=== PATIENT | female | born 1950 | race Asian ===

== ENCOUNTER 2020-10-10 10:23 | Inpatient (IN) | payer MEDICARE, OTHER ==
[~2020-10-10] VITALS: Ht 160 cm; Wt 57.6 kg
[2020-10-10] MEDS ORDERED: LOSA100T3 PO (11:15)
[2020-10-10] MEDS ORDERED: MELA3TAB41 PO (11:15)
[2020-10-10] MEDS ORDERED: TEMA15CA PO (11:15)
[2020-10-10] MEDS ORDERED: LORA-259 PO (11:15)
[2020-10-10] MEDS ORDERED: QUET25TA PO (11:15)
[2020-10-10] MEDS ORDERED: ESCI10TA PO (11:15)
[2020-10-10] MEDS ORDERED: ALPR0.25 PO (11:15)
[2020-10-10] MEDS ORDERED: CHOL200013 PO (11:15)
[2020-10-10] MEDS ORDERED: ICOS1CAP PO (11:15)
[2020-10-10] MEDS ORDERED: METH5TAB6 PO (11:15)
[2020-10-10] MEDS ORDERED: AMLO5TAB4 PO (11:15)
[2020-10-10] MEDS ORDERED: ATOR20TA PO (11:15)
[2020-10-10] MEDS ORDERED: ASCO1CAP4 PO (11:16)
--- NOTE | 2020-10-10 11:30 | NUR ---
FOR ADMISSION TO GPS FROM [facility]. PT IS MEDICALLY CLEARED. AWAITING PSYCH EVAL FOR ADMISSION.
--- NOTE | 2020-10-10 11:31 | NUR ---
PT IS AAO.X. NOT IN RESP DISTRESS. AMBULATORY. ON STEADY GAIT.
--- NOTE | 2020-10-10 13:49 | NUR ---
GOT BED 218
--- NOTE | 2020-10-10 13:50 | NUR ---
REPROT GIVEN TO ARISTIDES SNIDER FOR RENU AT THE [facility]
--- NOTE | 2020-10-10 13:58 | NUR ---
PT BEING TRANSPORTED TO UNIT ON WHEELCHAIR WITH EMT A T BEDSIDE. PT IS IN STABLE CONDITION FOR TRANSPORT.
--- NOTE | 2020-10-10 14:10 | NUR ---
RN-ADMISSION NOTES ADMITTED 70 Y.O FEMALE PATIENT FROM [facility] ER. PATIENT ON 5150 HOLD FOR DTS. UNDER DR. MCKINNEY ( PSYCHIATRIST) AND JESÚS GARCIA ( MATERNAL FETAL PHYSICIAN), BOTH MADE AWARE OF THE ADMISSION.UPON FACE TO FACE ASSESSMENT WITH THE PATIENT, A/O TO NAME ONLY. SPEAK LITTLE KINYARWANDA VERY ANXIOUS DISORGANIZED THOUGHT,UNABLE TO ANSWER QUESTIONS, POOR HISTORIAN.PATIENT AMBULATORY WITH STEADY GAIT. FULL BODY ASSESSMENT AND CONTRABAND DONE. PATIENT WAS ORIENTED IN THE UNIT AND UNIT POLICIES. WILL CONT. MONITORING FOR SAFETY AND BEHAVIOR.
--- NOTE | 2020-10-10 14:20 | NUR ---
Dr. Banda made aware of the admission and with orders.
[2020-10-10] MEDS ORDERED: MAG HYDROX/AL HYDROX/SIMETH 30 ML UDC PO PRN (14:30)
[2020-10-10] MEDS ORDERED: BLOOD SUGAR DIAGNOSTIC 1 EACH STRIP IN ONE (14:30)
[2020-10-10] MEDS: LORAZEPAM 0.5 MG TABLET PO PRN ×2 (14:44→20:42)
--- NOTE | 2020-10-10 14:44 | NUR ---
RN-NOTES NOTED PATIENT PACING IN THE UNIT CONFUSED WANTED TO GO BY FRUITS IN THE MARKET.UNABLE TO SIT STILL. REDIRECTED AND REORIENTED, ATIVAN 0.5MG P.O GIVEN PRN ORDER. WILL CONT. MONITORING FOR SAFETY AND BEHAVIOR.
--- NOTE | 2020-10-10 15:55 | NUR ---
RN-NOTES PATIENT IN THE DAY ROOM CALM,NO ACUTE DISTRESS NOTED.
[2020-10-10 16:00] VITALS: BP 138/61
--- NOTE | 2020-10-10 16:30 | NUR ---
RN-NOTES PATIENT SON ANTONIO SOTELO CAME IN THE UNIT AND GAVE SOME INFORMATION REGARDING PATIENTS MEDICAL HISTORY.
--- NOTE | 2020-10-10 19:19 | NUR ---
RN-NOTES PATIENT IN THE HALLWAY UP IN THE KAREN CHAIR,CALM AND QUIET.NO ACUTE DISTRESS NOTED. ALL NEEDS ATTENDED AND ANTICIPATED. WILL ENDORSED TO INCOMING NURSE FOR MONITORING AND CONTINUITY OF CARE.
--- NOTE | 2020-10-10 20:49 | NUR ---
GPS RN NOTES: PATIENT IS ANXIOUS AND RESTLESS. ATIVAN 0.5MG/1TAB GIVEN PO PRN ORDERED AT 2041. WILL CONTINUE TO MONITOR.
[2020-10-10 21:35] VITALS: BP 105/70
[2020-10-10] MEDS: TEMAZEPAM 7.5 MG CAPSULE PO PRN (23:13)
--- NOTE | 2020-10-10 23:14 | NUR ---
GPS RN NOTES: RESTORIL 7.5MG/1CAP GIVEN PO PRN ORDERED FOR SLEEP AT 2313. WILL CONTINUE TO MONITOR.
[2020-10-11 07:07] LABS: ALBUMIN 3.5 g/dL (3.4-5.0); BILIRUBIN,TOTAL 0.6 mg/dL (0.2-1.0); CALCIUM, SERUM 8.7 mg/dL (8.5-10.1); CREATININE 0.7 mg/dL (0.6-1.3); POTASSIUM 4.5 mmol/L (3.5-5.1); TOTAL PROTEIN, SERUM 6.9 g/dL (6.4-8.2)
[2020-10-11 07:12] LABS: CHOLESTEROL 131 mg/dL (<200); HDL CHOLESTEROL 54 mg/dL (40-60); LDL 63 mg/dL (0-99); TRIGLYCERIDES 91 mg/dL (30-150)
[2020-10-11 08:00] VITALS: BP 129/102
[2020-10-11 16:00] VITALS: BP 131/98
[2020-10-11] MEDS: FLUOXETINE HCL 20 MG CAPSULE PO SCH (18:51)
[2020-10-11 20:05] VITALS: BP 111/57
[2020-10-11 20:10] VITALS: BP 111/59
[2020-10-11] MEDS: MIRTAZAPINE 15 MG TABLET PO SCH (21:10)
[2020-10-11] MEDS: ATORVASTATIN 10 MG TABLET PO SCH (21:10)
[2020-10-11] MEDS: risperiDONE 0.25 MG TABLET PO SCH (21:25)
[2020-10-12 08:00] VITALS: BP 139/56
[2020-10-12] MEDS: LOSARTAN POTASSIUM 50 MG TABLET PO SCH (09:11)
[2020-10-12] MEDS: AMLODIPINE BESYLATE 5 MG TABLET PO SCH (09:12)
[2020-10-12] MEDS: CHOLECALCIFEROL 1,000 UNIT TABLET (VIT D3) PO SCH (09:12)
[2020-10-12] MEDS: METHIMAZOLE (5MG) 5 MG TABLET PO SCH (09:13)
[2020-10-12] MEDS: FLUOXETINE HCL 20 MG CAPSULE PO SCH (12:08)
[2020-10-12] MEDS: MAGNESIUM HYDROXIDE 30 ML UDC PO PRN (14:32)
--- NOTE | 2020-10-12 14:35 | NUR ---
RN NOTE: PATIENT STATES SHE FEELS "CONSTIPATED AND IS HAVING TROUBLE" ASKING AND REQUESTING FOR SOMETHING TO HELP HER. ADMINISTERED PRN MOM, MILK OF MAGNESIA ORDERED. WILL CONTINUE TO MONITOR PATIENT.
[2020-10-12 16:00] VITALS: BP 137/95
[2020-10-12 20:00] VITALS: BP 105/57
[2020-10-12] MEDS: ATORVASTATIN 10 MG TABLET PO SCH (21:31)
[2020-10-12] MEDS: MIRTAZAPINE 15 MG TABLET PO SCH (21:32)
[2020-10-12] MEDS: risperiDONE 0.25 MG TABLET PO SCH (21:32)
--- NOTE | 2020-10-13 00:03 | NUR ---
RN NOTE: INSOMNIA PATIENT VERBALIZED THAT SHE IS UNABLE TO SLEEP, FEELING RESTLESS. PATIENT REQUESTED TO TAKE SLEEPING MEDICINE. PRN RESTORIL 7.5 MG 1 CAP PO ADMINISTERED. WILL CONTINUE TO MONITOR.
--- NOTE | 2020-10-13 06:44 | NUR ---
RN NOTE PATIENT SLEPT WELL AT NIGHT AFTER TAKING RESTORIL.
[2020-10-13] MEDS: MAGNESIUM HYDROXIDE 30 ML UDC PO PRN ×2 (06:52→18:47)
--- NOTE | 2020-10-13 06:55 | NUR ---
RN NOTE: PRN MILK OF MAGNESIA GIVEN PATIENT C/O CONSTIPATION & REQUESTED TO TAKE MEDICINE. PRN MILK OF MAGNESIA 30 ML PO ADMINISTERED.
[2020-10-13] MEDS: METHIMAZOLE (5MG) 5 MG TABLET PO SCH (08:11)
[2020-10-13] MEDS: CHOLECALCIFEROL 1,000 UNIT TABLET (VIT D3) PO SCH (08:12)
[2020-10-13] MEDS: LOSARTAN POTASSIUM 50 MG TABLET PO SCH (08:13)
[2020-10-13] MEDS: AMLODIPINE BESYLATE 5 MG TABLET PO SCH (08:13)
[2020-10-13 08:22] VITALS: BP 127/54
[2020-10-13] MEDS: PSYLLIUM SEED 1 PKT PACKET PO PRN (11:13)
--- NOTE | 2020-10-13 11:14 | NUR ---
RN NOTE: CONSTIPATION PT C/O CONSTIPATION. MEDICATED WITH METAMUCIL PO PRN.
[2020-10-13] MEDS: FLUOXETINE HCL 20 MG CAPSULE PO SCH (12:18)
--- NOTE | 2020-10-13 16:16 | NUR ---
INITIAL D/C PLAN: THE PT. CURRENTLY LIVES AT HOME [[address] [address]] ALONE WITH HH. PT. STATES SHE WOULD LIKE PLACEMENT. SW DISCUSSED D/C PLANNING WITH SON/DPOA, ANTONIO SOTELO [phone] WHO STATED HE FEELS THE PT. NEEDS PLACEMENT DUE TO MULTIPLE (3X) SUICIDE ATTEMPTS THIS YEAR. GAVIN WILL CONTINUE TO COLLABORATE WITH PSYCHIATRIST & FAMILY TO PLAN SAFE &PROPER D/C.
--- NOTE | 2020-10-13 16:17 | NUR ---
POINT OF CONTACT: GAVIN SPOKE WITH SON/DPOA, ANTONIO SOTELO [phone] TO GATHER COLLATERAL INFORMATION. ANTONIO STATES HE IS HE DPOA AND WILL FAX PAPERWORK TO GAVIN RORO. GAVIN WILL FILE PAPERWORK IN CHART UPON RECEIVING IT. NOTED
[2020-10-13 16:26] VITALS: BP 126/51
--- NOTE | 2020-10-13 18:47 | NUR ---
RN NOTE: PT CONT TO C/O CONSTIPATION AFTER METAMUCIL AND PRUNE JUICE. MEDICATED WITH MOM PO PRN
[2020-10-13 20:00] VITALS: BP 107/54
[2020-10-13] MEDS: risperiDONE 0.25 MG TABLET PO SCH (21:25)
[2020-10-13] MEDS: MIRTAZAPINE 15 MG TABLET PO SCH (21:26)
[2020-10-13] MEDS: ATORVASTATIN 10 MG TABLET PO SCH (21:27)
[2020-10-13] MEDS: TEMAZEPAM 7.5 MG CAPSULE PO PRN ×2 (21:30)
[2020-10-14 08:00] VITALS: BP 126/69
[2020-10-14] MEDS: METHIMAZOLE (5MG) 5 MG TABLET PO SCH (08:25)
[2020-10-14] MEDS: BENZTROPINE MESYLATE (1 MG) 1 MG TABLET PO SCH ×2 (08:26→16:35)
[2020-10-14] MEDS: CHOLECALCIFEROL 1,000 UNIT TABLET (VIT D3) PO SCH (08:26)
[2020-10-14] MEDS: LOSARTAN POTASSIUM 50 MG TABLET PO SCH (08:27)
[2020-10-14] MEDS: AMLODIPINE BESYLATE 5 MG TABLET PO SCH (08:27)
[2020-10-14] MEDS: PSYLLIUM SEED 1 PKT PACKET PO PRN (08:28)
--- NOTE | 2020-10-14 08:28 | NUR ---
RN NOTE: CONSTIPATION PT C/O CONTINUED CONSTIPATION. MEDICATED WITH METAMUCIL. WILL CONT TO MONITOR EFFECTIVENESS OF PRN MEDICATIONS
--- NOTE | 2020-10-14 11:05 | NUR ---
FSP Therapist contact: SW received a call from pt's FSP therapist, Jules Crowe, . Jules requested to assess the pt on 10/16/20 at 1 p.m., with the pt's FSP coordinator.
--- NOTE | 2020-10-14 11:39 | NUR ---
SNF Referral: GAVIN faxed clinicals to [facility], , for review.
[2020-10-14] MEDS: Fluoxetine 10 mg capsule PO SCH (12:26)
[2020-10-14 16:00] VITALS: BP 112/65
[2020-10-14 20:00] VITALS: BP 107/60
[2020-10-14] MEDS: MIRTAZAPINE 15 MG TABLET PO SCH (21:34)
[2020-10-14] MEDS: risperiDONE 0.25 MG TABLET PO SCH (21:34)
[2020-10-14] MEDS: ATORVASTATIN 10 MG TABLET PO SCH (21:34)
[2020-10-14] MEDS: TEMAZEPAM 7.5 MG CAPSULE PO PRN (22:44)
--- NOTE | 2020-10-14 22:44 | NUR ---
GPS RN Note Patient was given her PRN Temazepam for sleep at 2244. Will continue to monitor the patient.
[2020-10-15 08:00] VITALS: BP 119/69
[2020-10-15] MEDS: CHOLECALCIFEROL 1,000 UNIT TABLET (VIT D3) PO SCH (08:41)
[2020-10-15] MEDS: METHIMAZOLE (5MG) 5 MG TABLET PO SCH (08:42)
[2020-10-15] MEDS: BENZTROPINE MESYLATE (1 MG) 1 MG TABLET PO SCH ×2 (08:42→16:24)
[2020-10-15] MEDS: LOSARTAN POTASSIUM 50 MG TABLET PO SCH (08:42)
[2020-10-15] MEDS: AMLODIPINE BESYLATE 5 MG TABLET PO SCH (08:42)
--- NOTE | 2020-10-15 11:45 | NUR ---
Point of Contact: SW contacted pt's son, Jae Cruz [phone], to discuss tx and D/C plans. Pt's son requested for the pt to be D/C to a SNF preferably near [place] and with some Armenian speaking staff if possible. Pt's son is open to alternative SNF's if preferred options are unable to accept the pt. SS will remain available to pt's son to coordinate D/C plans.
[2020-10-15] MEDS: Fluoxetine 10 mg capsule PO SCH (12:51)
[2020-10-15 16:00] VITALS: BP 107/61
[2020-10-15] MEDS: MIRTAZAPINE 15 MG TABLET PO SCH (21:07)
[2020-10-15] MEDS: risperiDONE 0.25 MG TABLET PO SCH (21:08)
[2020-10-15] MEDS: ATORVASTATIN 10 MG TABLET PO SCH (21:08)
[2020-10-15] MEDS: TEMAZEPAM 7.5 MG CAPSULE PO PRN (21:09)
--- NOTE | 2020-10-15 21:09 | NUR ---
RN NOTE PT REQUESTED FOR SLEEPING MEDICATION, RESTORIL GIVEN ORDERED.
[2020-10-15 21:38] VITALS: BP 107/60
[2020-10-16 08:00] VITALS: BP 106/63
[2020-10-16] MEDS: BENZTROPINE MESYLATE (1 MG) 1 MG TABLET PO SCH ×2 (08:39→16:41)
[2020-10-16] MEDS: METHIMAZOLE (5MG) 5 MG TABLET PO SCH (08:39)
[2020-10-16] MEDS: CHOLECALCIFEROL 1,000 UNIT TABLET (VIT D3) PO SCH (08:39)
[2020-10-16] MEDS: LOSARTAN POTASSIUM 50 MG TABLET PO SCH (08:40)
[2020-10-16] MEDS: AMLODIPINE BESYLATE 5 MG TABLET PO SCH (08:41)
[2020-10-16] MEDS: DOCUSATE SODIUM 100 MG CAPSULE PO SCH ×3 (09:16→16:41)
[2020-10-16] MEDS: SENNOSIDES/DOCUSATE SODIUM 1 TAB TABLET PO SCH (09:17)
[2020-10-16] MEDS: Fluoxetine 10 mg capsule PO SCH (12:02)
--- NOTE | 2020-10-16 12:21 | NUR ---
Probable Cause Hearing: Pt's 5250 hold upheld on the grounds of danger to self and grave disability.
--- NOTE | 2020-10-16 12:30 | NUR ---
FSP Therapist Visit GAVIN met with FSP therapist, Jules Crowe, and FSP coordinator, Josef Toussaint, [facility], ext. [phone] after pt assessment. SW was informed that the pt is open to SNF placement and will not be able to continue with her mental health tx through FSP if she is placed at a SNF. Pt will be able to resume her mental health tx at a later time when she is not at a SNF. Josef requested for GAVIN to notify him of D/C plans once they are finalized.
[2020-10-16 16:00] VITALS: BP 122/60
--- NOTE | 2020-10-16 16:09 | NUR ---
RN-NOTES DR. MCKINNEY IN THE UNIT WITH VERBAL ORDER OF GI CONSULT.NOTED AND CARRIED OUT. M[employer]IM[employer] AUTHORING SPECIALIST CALLED DR. TENORIO OFFICE AT [phone] AND SPOKE TO ROBERTO ( DESK STAFF ) AND STATED SHE WILL LET AWARE.
[2020-10-16 20:00] VITALS: BP 118/65
[2020-10-16] MEDS: MIRTAZAPINE 15 MG TABLET PO SCH (21:33)
[2020-10-16] MEDS: ATORVASTATIN 10 MG TABLET PO SCH (21:33)
[2020-10-16] MEDS: TEMAZEPAM 7.5 MG CAPSULE PO PRN (21:34)
[2020-10-16] MEDS ORDERED: risperiDONE 0.25 MG TABLET PO SCH (22:00)
[2020-10-17] MEDS: DOCUSATE SODIUM 100 MG CAPSULE PO SCH ×3 (08:47→17:27)
[2020-10-17] MEDS: CHOLECALCIFEROL 1,000 UNIT TABLET (VIT D3) PO SCH (08:47)
[2020-10-17] MEDS: BENZTROPINE MESYLATE (1 MG) 1 MG TABLET PO SCH ×2 (08:47→17:27)
[2020-10-17] MEDS: METHIMAZOLE (5MG) 5 MG TABLET PO SCH (08:47)
[2020-10-17] MEDS: LOSARTAN POTASSIUM 50 MG TABLET PO SCH (08:48)
[2020-10-17] MEDS: AMLODIPINE BESYLATE 5 MG TABLET PO SCH (08:49)
[2020-10-17] MEDS: SENNOSIDES/DOCUSATE SODIUM 1 TAB TABLET PO SCH (08:52)
[2020-10-17] MEDS: BLOOD SUGAR DIAGNOSTIC 1 EACH STRIP IN SCH ×3 (12:11→21:14)
[2020-10-17] MEDS: Fluoxetine 10 mg capsule PO SCH (13:02)
[2020-10-17 16:00] VITALS: BP 106/74
[2020-10-17 20:42] VITALS: BP 101/60
[2020-10-17] MEDS: MIRTAZAPINE 15 MG TABLET PO SCH (21:07)
[2020-10-17] MEDS: ATORVASTATIN 10 MG TABLET PO SCH (21:07)
[2020-10-17] MEDS: risperiDONE 1 MG TABLET PO SCH (21:08)
[2020-10-17] MEDS: TEMAZEPAM 7.5 MG CAPSULE PO PRN (21:48)
--- NOTE | 2020-10-17 21:49 | NUR ---
RN NOTE: INSOMNIA PATIENT VERBALIZED THAT SHE IS UNABLE TO SLEEP, FEELING RESTLESS & INSISTED TO TAKE SLEEPING MEDICINE AT THIS TIME. PRN RESTORIL 7.5 MG 1 CAP PO ADMINISTERED. PATIENT HAD SNACK & TOLERATED WELL. WILL CONTINUE TO MONITOR.
[2020-10-18] MEDS: BLOOD SUGAR DIAGNOSTIC 1 EACH STRIP IN SCH ×4 (07:33→20:58)
[2020-10-18 08:00] VITALS: BP 144/80
[2020-10-18] MEDS: BENZTROPINE MESYLATE (1 MG) 1 MG TABLET PO SCH ×2 (08:47→16:42)
[2020-10-18] MEDS: METHIMAZOLE (5MG) 5 MG TABLET PO SCH (08:47)
[2020-10-18] MEDS: AMLODIPINE BESYLATE 5 MG TABLET PO SCH (08:48)
[2020-10-18] MEDS: LOSARTAN POTASSIUM 50 MG TABLET PO SCH (08:48)
[2020-10-18] MEDS: CHOLECALCIFEROL 1,000 UNIT TABLET (VIT D3) PO SCH (08:48)
[2020-10-18] MEDS: DOCUSATE SODIUM 100 MG CAPSULE PO SCH ×3 (08:48→16:42)
[2020-10-18] MEDS: SENNOSIDES/DOCUSATE SODIUM 1 TAB TABLET PO SCH (08:57)
[2020-10-18] MEDS: Fluoxetine 10 mg capsule PO SCH (13:00)
[2020-10-18 16:00] VITALS: BP 100/64
--- NOTE | 2020-10-18 18:33 | NUR ---
RN-NOTES PATIENT WATCHING TV IN THE DAY ROOM AWAKE,A/O X2 CALM,NO ACUTE DISTRESS NOTED. WILL ENDORSE TO INCOMING NURSE FOR CONTINUITY OF CARE AND MONITORING.
[2020-10-18] MEDS: LORAZEPAM 0.5 MG TABLET PO PRN (19:58)
[2020-10-18 20:25] VITALS: BP 120/72
[2020-10-18] MEDS: ATORVASTATIN 10 MG TABLET PO SCH (20:57)
[2020-10-18] MEDS: MIRTAZAPINE 15 MG TABLET PO SCH (20:57)
[2020-10-18] MEDS: risperiDONE 1 MG TABLET PO SCH (20:58)
[2020-10-18] MEDS: TEMAZEPAM 7.5 MG CAPSULE PO PRN (20:58)
[2020-10-19] MEDS: BLOOD SUGAR DIAGNOSTIC 1 EACH STRIP IN SCH ×4 (07:30→21:29)
--- NOTE | 2020-10-19 07:30 | NUR ---
RNArsenioCO: PT REFUSED BLOOD SUGAR CHECK.
[2020-10-19 08:00] VITALS: BP 104/60
[2020-10-19] MEDS: METHIMAZOLE (5MG) 5 MG TABLET PO SCH (08:42)
[2020-10-19] MEDS: CHOLECALCIFEROL 1,000 UNIT TABLET (VIT D3) PO SCH (08:42)
[2020-10-19] MEDS: LOSARTAN POTASSIUM 50 MG TABLET PO SCH (08:42)
[2020-10-19] MEDS: AMLODIPINE BESYLATE 5 MG TABLET PO SCH (08:43)
[2020-10-19] MEDS: DOCUSATE SODIUM 100 MG CAPSULE PO SCH ×3 (08:43→16:42)
[2020-10-19] MEDS: BENZTROPINE MESYLATE (1 MG) 1 MG TABLET PO SCH ×2 (08:43→16:42)
[2020-10-19] MEDS: SENNOSIDES/DOCUSATE SODIUM 1 TAB TABLET PO SCH (08:46)
[2020-10-19] MEDS: MAGNESIUM HYDROXIDE 30 ML UDC PO PRN (13:26)
[2020-10-19] MEDS: Fluoxetine 10 mg capsule PO SCH (13:27)
[2020-10-19 16:00] VITALS: BP 126/90
--- NOTE | 2020-10-19 16:30 | NUR ---
RN-CO: BLOOD SUGAR BEF DINNER IS 94.
[2020-10-19 19:55] VITALS: BP 112/63
[2020-10-19 20:33] VITALS: BP 112/63
[2020-10-19] MEDS: MIRTAZAPINE 15 MG TABLET PO SCH (21:15)
[2020-10-19] MEDS: ATORVASTATIN 10 MG TABLET PO SCH (21:15)
[2020-10-19] MEDS: risperiDONE 1 MG TABLET PO SCH (21:16)
--- NOTE | 2020-10-19 22:00 | NUR ---
RN NOTE AROUND 1999, PATIENT NOTED TO BE WORRIED & RESTLESS ABOUT NOT URINATING, STATED," I DIDN'T PEE AFTER LUNCH." ASSESSED THE PATIENT, ABDOMEN SOFT TO TOUCH, NO C/O PAIN AT THIS TIME. ENCOURAGED MORE WATER & OFFERED WATER MULTIPLE TIMES BUT PATIENT WAS AVOIDING TO DRINK AT TIMES OR SEEN HER POURING WATER BACK TO THE PITCHER. AROUND 2144, PATIENT URINATED, CLEAR & YELLOW COLOR URINE, NO CHANGES NOTED. WILL CONTINUE TO MONITOR.
[2020-10-19] MEDS: TEMAZEPAM 7.5 MG CAPSULE PO PRN (22:16)
--- NOTE | 2020-10-19 22:17 | NUR ---
RN NOTE: INSOMNIA PATIENT VERBALIZED THAT SHE IS UNABLE TO SLEEP, FEELING RESTLESS & INSISTED TO TAKE SLEEPING MEDICINE AT THIS TIME. PRN RESTORIL 7.5 MG 1 CAP PO ADMINISTERED. WILL CONTINUE TO MONITOR.
--- NOTE | 2020-10-20 07:30 | NUR ---
PT RECEIVED RESTING COMFORTABLY IN BED. NO S/S OR C/O PAIN OR DISTRESS NOTED. SIDE RAILS UP X2, CALL LIGHT LEFT WITHIN REACH. WILL CONTINUE PLAN OF CARE.
[2020-10-20 08:00] VITALS: BP 112/73
[2020-10-20] MEDS: BLOOD SUGAR DIAGNOSTIC 1 EACH STRIP IN SCH ×4 (08:00→21:27)
[2020-10-20] MEDS: DOCUSATE SODIUM 100 MG CAPSULE PO SCH ×3 (09:05→17:36)
[2020-10-20] MEDS: LOSARTAN POTASSIUM 50 MG TABLET PO SCH (09:06)
[2020-10-20] MEDS: AMLODIPINE BESYLATE 5 MG TABLET PO SCH (09:07)
[2020-10-20] MEDS: CHOLECALCIFEROL 1,000 UNIT TABLET (VIT D3) PO SCH (09:07)
[2020-10-20] MEDS: METHIMAZOLE (5MG) 5 MG TABLET PO SCH (09:07)
[2020-10-20] MEDS: SENNOSIDES/DOCUSATE SODIUM 1 TAB TABLET PO SCH (09:07)
[2020-10-20] MEDS: BENZTROPINE MESYLATE (1 MG) 1 MG TABLET PO SCH ×3 (09:07→17:37)
[2020-10-20] MEDS: Fluoxetine 10 mg capsule PO SCH (13:13)
[2020-10-20 16:00] VITALS: BP 119/64
[2020-10-20 20:00] VITALS: BP 110/68
[2020-10-20] MEDS: risperiDONE 1 MG TABLET PO SCH (21:22)
[2020-10-20] MEDS: MIRTAZAPINE 15 MG TABLET PO SCH (21:22)
[2020-10-20] MEDS: ATORVASTATIN 10 MG TABLET PO SCH (21:23)
[2020-10-20] MEDS: TEMAZEPAM 7.5 MG CAPSULE PO PRN (21:50)
--- NOTE | 2020-10-20 21:51 | NUR ---
RN NOTE: INSOMNIA PATIENT VERBALIZED THAT SHE IS UNABLE TO SLEEP & INSISTED TO TAKE SLEEPING MEDICINE RIGHT NOW. PRN RESTORIL 7.5 MG 1 CAP PO ADMINISTERED. WILL CONTINUE TO MONITOR.
[2020-10-21] MEDS: BLOOD SUGAR DIAGNOSTIC 1 EACH STRIP IN SCH ×4 (07:13→21:36)
[2020-10-21 08:00] VITALS: BP 108/63
[2020-10-21] MEDS: AMLODIPINE BESYLATE 5 MG TABLET PO SCH (09:00)
[2020-10-21] MEDS: LOSARTAN POTASSIUM 50 MG TABLET PO SCH (09:00)
[2020-10-21] MEDS: DOCUSATE SODIUM 100 MG CAPSULE PO SCH ×3 (09:10→16:58)
[2020-10-21] MEDS: CHOLECALCIFEROL 1,000 UNIT TABLET (VIT D3) PO SCH (09:10)
[2020-10-21] MEDS: METHIMAZOLE (5MG) 5 MG TABLET PO SCH (09:11)
[2020-10-21] MEDS: BENZTROPINE MESYLATE (1 MG) 1 MG TABLET PO SCH ×3 (09:11→16:58)
[2020-10-21] MEDS: SENNOSIDES/DOCUSATE SODIUM 1 TAB TABLET PO SCH (09:12)
[2020-10-21] MEDS: Fluoxetine 10 mg capsule PO SCH (13:05)
[2020-10-21 16:00] VITALS: BP_SYST 108; BP_SYST 140; BP_DIAS 58; BP_DIAS 74
[2020-10-21 20:00] VITALS: BP 117/67
[2020-10-21 20:32] VITALS: BP 117/67
[2020-10-21 21:03] VITALS: BP 121/70
[2020-10-21] MEDS: ATORVASTATIN 10 MG TABLET PO SCH (21:26)
[2020-10-21] MEDS: risperiDONE 1 MG TABLET PO SCH (21:27)
--- NOTE | 2020-10-21 21:46 | NUR ---
RN NOTE ONLY I MG (1 TABLET) OF RISPERIDONE WAS TAKEN OUT OF THE OMNICELL AT FIRST BY MISTAKE, THERE WAS TOTAL OF 8 TABS, SECOND RISPERIDONE 1 TAB OF 1 MG TAKEN OUT AGAIN & TOTAL OF 6 TABLETS REMAINING IN THE OMNICELL.
[2020-10-21] MEDS ORDERED: MIRTAZAPINE 15 MG TABLET PO SCH (22:00)
[2020-10-21] MEDS: TEMAZEPAM 7.5 MG CAPSULE PO PRN (22:23)
[2020-10-22] MEDS: BLOOD SUGAR DIAGNOSTIC 1 EACH STRIP IN SCH ×2 (07:36→12:06)
[2020-10-22 08:00] VITALS: BP 110/63
[2020-10-22] MEDS: CHOLECALCIFEROL 1,000 UNIT TABLET (VIT D3) PO SCH (09:02)
[2020-10-22] MEDS: AMLODIPINE BESYLATE 5 MG TABLET PO SCH (09:03)
[2020-10-22] MEDS: LOSARTAN POTASSIUM 50 MG TABLET PO SCH (09:03)
[2020-10-22] MEDS: METHIMAZOLE (5MG) 5 MG TABLET PO SCH (09:03)
[2020-10-22] MEDS: BENZTROPINE MESYLATE (1 MG) 1 MG TABLET PO SCH ×3 (09:04→16:57)
[2020-10-22] MEDS: DOCUSATE SODIUM 100 MG CAPSULE PO SCH ×3 (09:04→16:57)
[2020-10-22] MEDS: SENNOSIDES/DOCUSATE SODIUM 1 TAB TABLET PO SCH (09:06)
--- NOTE | 2020-10-22 11:30 | NUR ---
Point of Contact SW contacted pt's son, Jae Cruz [phone], to discuss pt's concerns about signing her apartment lease. SS will continue to attempt to contact pt's son.
[2020-10-22] MEDS: Fluoxetine 10 mg capsule PO SCH (12:09)
[2020-10-22] MEDS: DIVALPROEX SODIUM 125 MG CAP.SPRINK PO SCH ×2 (12:09→16:57)
--- NOTE | 2020-10-22 12:12 | NUR ---
Point of Contact SW received a call from pt's son, Jae Cruz [phone]. Pt's son assured SW that the pt has nothing to be concerned about as Jae has spoken to the theatrical variety agent about the pt's current situation. Jae stated that he has assured the pt on multiple occasions regarding the pt's lease but pt has been anxious and concerned. Pt's son agrees to SNF placement at [facility] but provided SW with additional SNF information for [facility] (ph: [phone] fax: [phone]) and requested for SW to fax clinicals to this facility. SW will fax clinicals.
--- NOTE | 2020-10-22 12:17 | NUR ---
SNF Referral Per pt's son's request, GAVIN faxed clinicals to [facility] (fax: [phone]), for review. Pt's son, Jae, , agrees to D/C pt to [facility] if [facility] is not accepting the pt.
[2020-10-22 16:00] VITALS: BP 103/56
[2020-10-22 20:00] VITALS: BP 103/53
--- NOTE | 2020-10-22 21:30 | NUR ---
RN NOTE PT REQUESTING FOR SLEEPING MED RESTORIL 7.5 MG PO GIVEN. CONTINUE TO MONITOR HER. PT IS COOPERATIVE. MED COMPLIANT.
[2020-10-22] MEDS: risperiDONE 1 MG TABLET PO SCH (21:33)
[2020-10-22] MEDS: ATORVASTATIN 10 MG TABLET PO SCH (21:33)
[2020-10-22] MEDS: TEMAZEPAM 7.5 MG CAPSULE PO PRN (21:33)
--- NOTE | 2020-10-22 22:30 | NUR ---
RN NOTE PT FALL ASLEEP, NO DISTRESS NOTED.
[2020-10-23 08:00] VITALS: BP 108/62
[2020-10-23] MEDS: AMLODIPINE BESYLATE 5 MG TABLET PO SCH (09:00)
[2020-10-23] MEDS: LOSARTAN POTASSIUM 50 MG TABLET PO SCH (09:00)
[2020-10-23] MEDS: BENZTROPINE MESYLATE (1 MG) 1 MG TABLET PO SCH ×3 (09:06→16:56)
[2020-10-23] MEDS: CHOLECALCIFEROL 1,000 UNIT TABLET (VIT D3) PO SCH (09:06)
[2020-10-23] MEDS: DIVALPROEX SODIUM 125 MG CAP.SPRINK PO SCH ×3 (09:06→16:57)
[2020-10-23] MEDS: METHIMAZOLE (5MG) 5 MG TABLET PO SCH (09:07)
[2020-10-23] MEDS: DOCUSATE SODIUM 100 MG CAPSULE PO SCH ×3 (09:07→16:57)
[2020-10-23] MEDS: SENNOSIDES/DOCUSATE SODIUM 1 TAB TABLET PO SCH (09:09)
[2020-10-23] MEDS: Fluoxetine 10 mg capsule PO SCH (12:58)
[2020-10-23 16:00] VITALS: BP 118/65
[2020-10-23 21:05] VITALS: BP 128/62
[2020-10-23] MEDS: MAGNESIUM HYDROXIDE 30 ML UDC PO PRN (21:30)
[2020-10-23] MEDS: TEMAZEPAM 7.5 MG CAPSULE PO PRN (21:30)
[2020-10-23] MEDS: ATORVASTATIN 10 MG TABLET PO SCH (21:31)
[2020-10-23] MEDS: risperiDONE 1 MG TABLET PO SCH (21:36)
[2020-10-23] MEDS: LORAZEPAM 0.5 MG TABLET PO PRN (23:43)
--- NOTE | 2020-10-23 23:47 | NUR ---
GPS/RN PATIENT IS STILL AWAKE AT THIS TIME, VERY ANXIOUS, PACING SAYING "PLEASE HELP ME I CAN NOT SLEEP", ATIVAN 0.5 MG PO WAS GIVEN ORDERED. WILL MONITOR.
--- NOTE | 2020-10-24 01:00 | NUR ---
GPS/RN PATIENT IS SLEEPING AT THIS TIME, APPEARS COMFORTABLE, NO SIGNS OF DISTRESS NOTED, WILL CONTINUE TO MONITOR.
[2020-10-24 08:00] VITALS: BP 110/65
[2020-10-24] MEDS: SENNOSIDES/DOCUSATE SODIUM 1 TAB TABLET PO SCH ×2 (08:30→09:09)
[2020-10-24] MEDS: DIVALPROEX SODIUM 125 MG CAP.SPRINK PO SCH ×4 (08:30→17:06)
[2020-10-24] MEDS: CHOLECALCIFEROL 1,000 UNIT TABLET (VIT D3) PO SCH ×2 (08:30→09:10)
[2020-10-24] MEDS: AMLODIPINE BESYLATE 5 MG TABLET PO SCH ×2 (08:30→09:13)
[2020-10-24] MEDS: DOCUSATE SODIUM 100 MG CAPSULE PO SCH ×4 (08:30→17:06)
[2020-10-24] MEDS: METHIMAZOLE (5MG) 5 MG TABLET PO SCH ×2 (08:30→09:11)
[2020-10-24] MEDS: BENZTROPINE MESYLATE (1 MG) 1 MG TABLET PO SCH ×4 (08:31→17:06)
[2020-10-24] MEDS: LOSARTAN POTASSIUM 50 MG TABLET PO SCH ×2 (08:31→09:10)
[2020-10-24] MEDS: ACETAMINOPHEN 325 MG TABLET PO PRN (09:57)
--- NOTE | 2020-10-24 12:03 | NUR ---
SNF Update GAVIN was notified by Jihan at [facility], that the pt has not been accepted to the facility. GAVIN notified pt's son, Jae, , of this SNF update and pt's son agreed to D/C pt to [facility].
[2020-10-24] MEDS: Fluoxetine 10 mg capsule PO SCH (13:07)
[2020-10-24 16:00] VITALS: BP 90/55
[2020-10-24 16:33] VITALS: BP 100/58
[2020-10-24] MEDS: MAGNESIUM HYDROXIDE 30 ML UDC PO PRN (18:41)
[2020-10-24 21:00] VITALS: BP 114/63
[2020-10-24] MEDS: ATORVASTATIN 10 MG TABLET PO SCH (21:08)
[2020-10-24] MEDS: risperiDONE 1 MG TABLET PO SCH (21:09)
[2020-10-25 08:00] VITALS: BP 151/61
[2020-10-25] MEDS: AMLODIPINE BESYLATE 5 MG TABLET PO SCH (09:22)
[2020-10-25] MEDS: CHOLECALCIFEROL 1,000 UNIT TABLET (VIT D3) PO SCH (09:22)
[2020-10-25] MEDS: DIVALPROEX SODIUM 125 MG CAP.SPRINK PO SCH ×3 (09:22→17:23)
[2020-10-25] MEDS: METHIMAZOLE (5MG) 5 MG TABLET PO SCH (09:23)
[2020-10-25] MEDS: BENZTROPINE MESYLATE (1 MG) 1 MG TABLET PO SCH ×3 (09:23→17:23)
[2020-10-25] MEDS: DOCUSATE SODIUM 100 MG CAPSULE PO SCH ×3 (09:24→17:23)
[2020-10-25] MEDS: LOSARTAN POTASSIUM 50 MG TABLET PO SCH (09:24)
[2020-10-25] MEDS: SENNOSIDES/DOCUSATE SODIUM 1 TAB TABLET PO SCH (09:27)
--- NOTE | 2020-10-25 11:16 | NUR ---
given maalox for indigestion.
[2020-10-25 16:00] VITALS: BP 132/76
--- NOTE | 2020-10-25 18:10 | NUR ---
initially refused half of depakote evening dose,discussed disadvantage of doing this.
[2020-10-25 20:47] VITALS: BP 119/52
[2020-10-25] MEDS: ATORVASTATIN 10 MG TABLET PO SCH (21:35)
[2020-10-25] MEDS: risperiDONE 1 MG TABLET PO SCH (21:35)
[2020-10-25] MEDS: TEMAZEPAM 7.5 MG CAPSULE PO PRN (21:42)
--- NOTE | 2020-10-25 21:42 | NUR ---
RN NOTE PATIENT C/O INABILITY TO SLEEP. PER PT REQUEST PRN RESTORIL 7.5 MG 1 CAP PO HS PRN ADMINISTERED AT THIS TIME. WILL CONTINUE TO MONITOR
--- NOTE | 2020-10-25 22:50 | NUR ---
MISTAKENLY DOCUMENTED ON DOMINGA'S ACCOUNT THE PREVIOUS MORNING RN.
[2020-10-26 07:16] LABS: BASOPHILS % (AUTO) 0.6 % (0.0-2.0); EOSINOPHILS % (AUTO) 3.5 % (0.0-6.0); HEMATOCRIT 37 % (33-45); HEMOGLOBIN 12.5 g/dL (11.5-14.8); LYMPHOCYTES # (AUTO) 1.8 K/uL (0.8-4.8); LYMPHOCYTES % (AUTO) 30.5 % (20.0-44.0); MEAN CORPUSCULAR HGB CONC 34 g/dl (31.0-36.0); MEAN CORPUSCULAR VOLUME 98 fL (82-100); MONOCYTES # (AUTO) 0.5 K/uL (0.1-1.30); MONOCYTES % (AUTO) 8.2 % (2.0-12.0); NEUTROPHILS # (AUTO) 3.4 K/uL (1.8-8.9); NEUTROPHILS % (AUTO) 57.2 % (43.0-81.0); PLATELET COUNT (AUTO) 209 K/uL (150-450); RED BLOOD CELL COUNT(AUTO) 3.74 MIL/uL (4.0-5.2); WHITE BLOOD COUNT (AUTO) 5.9 K/uL (4.3-11.0)
[2020-10-26 07:36] LABS: ALBUMIN 3.2 g/dL (3.4-5.0); BILIRUBIN,TOTAL 0.4 mg/dL (0.2-1.0); CALCIUM, SERUM 8.6 mg/dL (8.5-10.1); CREATININE 0.6 mg/dL (0.6-1.3); TOTAL PROTEIN, SERUM 6.6 g/dL (6.4-8.2)
[2020-10-26 07:39] LABS: POTASSIUM 3.9 mmol/L (3.5-5.1)
[2020-10-26 08:00] VITALS: BP 159/62
[2020-10-26] MEDS: DIVALPROEX SODIUM 125 MG CAP.SPRINK PO SCH ×3 (08:38→16:23)
[2020-10-26] MEDS: CHOLECALCIFEROL 1,000 UNIT TABLET (VIT D3) PO SCH (08:39)
[2020-10-26] MEDS: METHIMAZOLE (5MG) 5 MG TABLET PO SCH (08:40)
[2020-10-26] MEDS: BENZTROPINE MESYLATE (1 MG) 1 MG TABLET PO SCH ×3 (08:40→16:23)
[2020-10-26] MEDS: AMLODIPINE BESYLATE 5 MG TABLET PO SCH (08:41)
[2020-10-26] MEDS: DOCUSATE SODIUM 100 MG CAPSULE PO SCH ×3 (08:42→16:23)
[2020-10-26] MEDS: SENNOSIDES/DOCUSATE SODIUM 1 TAB TABLET PO SCH (08:47)
[2020-10-26] MEDS: LOSARTAN POTASSIUM 50 MG TABLET PO SCH (09:15)
[2020-10-26] MEDS: risperiDONE 1 MG TABLET PO SCH ×2 (12:24→21:26)
--- NOTE | 2020-10-26 14:07 | NUR ---
GPS RN NOTE: DR. MCKINNEY SEEN AND EXAMINE THE PATIENT ORDER HOLD DISCHARGE FOR TODAY. PT SON NOTIFIED
[2020-10-26 14:22] LABS: THYROID STIMULATING HORMONE 1.463 uIU/mL (0.358-3.74)
[2020-10-26 16:00] VITALS: BP 143/66
[2020-10-26 20:21] VITALS: BP 143/51
[2020-10-26 20:48] VITALS: BP 143/51
[2020-10-26] MEDS: MAGNESIUM HYDROXIDE 30 ML UDC PO PRN (21:04)
[2020-10-26] MEDS: ATORVASTATIN 10 MG TABLET PO SCH (21:26)
[2020-10-27] MEDS: TEMAZEPAM 7.5 MG CAPSULE PO PRN ×2 (00:27→22:03)
--- NOTE | 2020-10-27 00:27 | NUR ---
GPS RN NOTE PATIENT C/O INABILITY TO SLEEP. PER PT REQUEST, PRN 1 CAPSULE OF RESTORIL 7.5 MG WAS ADMINISTERED AT THIS TIME. WILL CONTINUE TO MONITOR THE PATIENT.
[2020-10-27 08:00] VITALS: BP 110/53
[2020-10-27] MEDS: LOSARTAN POTASSIUM 50 MG TABLET PO SCH (08:10)
[2020-10-27] MEDS: AMLODIPINE BESYLATE 5 MG TABLET PO SCH (08:11)
[2020-10-27] MEDS: BENZTROPINE MESYLATE (1 MG) 1 MG TABLET PO SCH ×3 (08:41→17:20)
[2020-10-27] MEDS: SENNOSIDES/DOCUSATE SODIUM 1 TAB TABLET PO SCH (08:41)
[2020-10-27] MEDS: DOCUSATE SODIUM 100 MG CAPSULE PO SCH ×3 (08:41→17:20)
[2020-10-27] MEDS: CHOLECALCIFEROL 1,000 UNIT TABLET (VIT D3) PO SCH (08:41)
[2020-10-27] MEDS: DIVALPROEX SODIUM 125 MG CAP.SPRINK PO SCH ×3 (08:41→17:20)
[2020-10-27] MEDS: risperiDONE 1 MG TABLET PO SCH ×2 (08:42→22:02)
[2020-10-27] MEDS: METHIMAZOLE (5MG) 5 MG TABLET PO SCH (08:42)
--- NOTE | 2020-10-27 10:00 | NUR ---
GPS HVAC/R SERVICE TECHNICIAN: PSYCH F/U SEEN BY DR. MCKINNEY AT THIS TIME. PT FOR D'C PLANNING.
--- NOTE | 2020-10-27 14:36 | NUR ---
D/C Planning: SW called pt's son, Jae Cruz [phone] and left voicemail notifying him that psychiatrist has cleared pt. for discharge to [facility] and to call SW back by 10/28/2020 at 9 am if he is not agreeable to this plan.
[2020-10-27 16:00] VITALS: BP 106/69
[2020-10-27 20:00] VITALS: BP 93/52
[2020-10-27] MEDS: ATORVASTATIN 10 MG TABLET PO SCH (22:02)
[2020-10-27] MEDS: ACETAMINOPHEN 325 MG TABLET PO PRN (22:42)
--- NOTE | 2020-10-27 22:42 | NUR ---
GPS RN NOTES: TYLENOL 650MG GIVEN PO FOR RIGHT SHOULDER PAIN AT 2242. WILL CONTINUE TO MONITOR.
[2020-10-28 08:00] VITALS: BP 111/63
[2020-10-28] MEDS: DIVALPROEX SODIUM 125 MG CAP.SPRINK PO SCH ×2 (08:23→12:53)
[2020-10-28] MEDS: METHIMAZOLE (5MG) 5 MG TABLET PO SCH (08:24)
[2020-10-28] MEDS: BENZTROPINE MESYLATE (1 MG) 1 MG TABLET PO SCH ×2 (08:24→12:53)
[2020-10-28] MEDS: CHOLECALCIFEROL 1,000 UNIT TABLET (VIT D3) PO SCH (08:24)
[2020-10-28] MEDS: DOCUSATE SODIUM 100 MG CAPSULE PO SCH ×2 (08:24→12:53)
[2020-10-28] MEDS: risperiDONE 1 MG TABLET PO SCH (08:24)
[2020-10-28 08:25] VITALS: BP 111/63
[2020-10-28] MEDS: LOSARTAN POTASSIUM 50 MG TABLET PO SCH (08:25)
[2020-10-28] MEDS: AMLODIPINE BESYLATE 5 MG TABLET PO SCH (08:25)
[2020-10-28] MEDS: SENNOSIDES/DOCUSATE SODIUM 1 TAB TABLET PO SCH (08:44)
--- NOTE | 2020-10-28 09:00 | NUR ---
RN NOTE- PT CALM INTERACTIVE AFFECT APPROPRIATE DENIES SI HI AH VH MED COMPLIANT FOCUS ON DC
--- NOTE | 2020-10-28 09:44 | NUR ---
D/C Planning SW contacted pt's son, Jae Cruz [phone] and returned his call. Pt's son stated that he is agreeable to pt's D/C plan to [facility], scheduled for today afternoon.
--- NOTE | 2020-10-28 13:40 | NUR ---
BROWN SOURER NOTE- PT DC AT THIS TIME VIA AMBULANCE TO [facility]. PT IS ALERT ORIENTED TO PERSON PLACE TIME PURPOSE. DENIES SI HI AH VH. MED COMPLIANT. SKIN INTACT REFUSES VACCS, CLOTHING RETURNED TO PT, ID [id number] REMOVED. DC PLAN PHONED REPORT TO SHARMIN AT FACILITY . REVIEWED W AMBULANCE STAFF AND UNDERSTOOD. ESCORTED OFF UNIT IN [facility]
--- NOTE | 2020-10-28 13:50 | NUR ---
SS D/C note Pt was discharged to [facility] ([facility]) located at [address] [place] [address]; ([phone]). Pt was transported via ambulance at around 1 PM. Pts son, Jae Cruz, , was informed of this D/C and approved of it. Upon discharge, the pt. presented with an anxious mood and affect. Pt. denied suicidal and homicidal ideation as well as visual and auditory hallucinations. Pt will be under the care of psychiatrist, Dr. Banda, located at [address] [address], [place] [address]; and hunting sales leader, Dr. Jeronimo, located at [address] [place] [address]; . The choice of vendor form and multidisciplinary exit care form were done, printed, signed, and given to the patient.
== END 2020-10-28 13:40 | DRG 885 ==
LOC: ER 10:34 → GPS 13:50
PROVIDERS: ADMIT Psychiatry & Neurology Psychosomatic Medicine; ATTEND Nurse Practitioner Family
DX: F25.0 Schizoaffective disorder, bipolar type (principal); F41.9 Anxiety disorder, unspecified; I10 Essential (primary) hypertension; Z20.822 Contact with and (suspected) exposure to COVID-19; G31.84 Mild cognitive impairment of uncertain or unknown etiology; Z79.899 Other long term (current) drug therapy; F29 Unspecified psychosis not due to a substance or known physiological condition; F32.9 Major depressive disorder, single episode, unspecified
CPT/HCPCS: 36415; 74018; 80053-TC; 80061-TC; 80164-TC; 82962-TC; 84439-TC; 84443-TC; 84481; 85025-TC; 87081-TC